=== PATIENT | male | born 2005 | race African-American/Black ===

== ENCOUNTER 2024-06-09 19:59 | Emergency (ER) | payer BC ==
[2024-06-09] MEDS ORDERED: Amoxicillin/Clavulanate K 875-125 MG Tab PO ONE (20:00)
== END 2024-06-09 21:16 | disposition home or self-care (01) ==
LOC: FB.ED 19:59
DX: J03.90 Acute tonsillitis, unspecified (principal); F17.290 Nicotine dependence, other tobacco product, uncomplicated
CPT/HCPCS: 99282; 99283; A9270-GY